=== PATIENT | male | born 1985 | race Caucasian/White ===

== ENCOUNTER 2019-11-23 22:32 | Emergency (ER) | payer SELFPAY ==
[~2019-11-23] VITALS: Ht 188 cm; Wt 79.4 kg
[2019-11-23 22:46] VITALS: BP 116/83; Ht 188 cm; Wt 79.4 kg
== END 2019-11-23 23:31 | disposition home or self-care (01) ==
LOC: ED 22:32
DX: K04.7 Periapical abscess without sinus (principal)